=== PATIENT | female | born 1965 | race Caucasian/White ===

== ENCOUNTER 2017-01-06 00:52 | Emergency (ER) | payer MEDICAID, OTHER ==
[~2017-01-06] VITALS: Ht 165.1 cm; Wt 59.9 kg
[~2017-01-06 00:52] MED LIST: ALBUTEROL SULF8.5 GM INH; AMOXICILLIN500 MG ORAL; AZITHROMYCIN250 MG ORAL; CLARITIN10 M2 ORAL; IBUPROFEN600 MG ORAL; NKM; PROMETHAZINE-C118 M1 ORAL; RANITIDINE HCL150 MG ORAL; TYLENOL EXTRA500 MG ORAL; ZOFRAN ODT4 MG ORAL
--- NOTE | 2017-01-06 01:09 | Emergency Room Report ---
History of Present Illness General Chief Complaint: Chest Pain Source: Patient Present Illness HPI Patient presents with chest pain. Since yesterday with a cough. Cough is slightly productive. No color. She had nasal surgery for allergies and polyps. She still has a postnasal drip. She feels surgery has not helped. She's used a inhaler in the past but not recently. She is using Nasonex and a decongestant. The pain is in her chest with coughing and pleuritic. Pain is 8/10, pleuritic. No risk factors for DVT. No calf pain, hemoptysis. Allergies: Coded Allergies: IBUPROFEN (Verified Allergy, Unknown, 01/06/17) Patient History Past Medical History: see triage record Social History: Denies: smoking Social History Narrative Last Menstrual Period: 01/02/17 Now: No Reviewed Nursing Documentation: PMH: Agreed, PSxH: Agreed Nursing Documentation-PMH Past Medical History: No Stated History Review of Systems All Other Systems: negative except mentioned in HPI Physical Exam Vital Signs Date Time Temp Pulse Resp B/P (MAP) Pulse Ox O2 Delivery O2 Flow Rate FiO2 01/06/17 00:56 100.8 74 17 105/78 98 Room Air Sp02 EP Interpretation: reviewed, normal General Appearance: well appearing, no apparent distress, GCS 15 Head: normocephalic Eyes: bilateral eye normal inspection, bilateral eye PERRL ENT: moist mucus membranes, pharyngeal erythema Neck: supple Respiratory: wheezing, expiration, other - some CWT Cardiovascular #1: regular rate, rhythm, no edema Cardiovascular #2: 2+ radial (R) Gastrointestinal: normal inspection, normal bowel sounds, non tender, no mass, non-distended Musculoskeletal: back normal, gait/station normal, normal range of motion, no calf tenderness, Vaishali's Sign negative Neurologic: alert, oriented x3, grossly normal Skin: normal inspection, warm/dry Medical Decision Making Diagnostic Impression: Primary Impression: Asthmatic bronchitis Qualified Codes: J45.901 - Unspecified asthma with (acute) exacerbation Additional Impressions: Anxiety Dyspepsia ER Course Patient with cough, chest pain, and wheezing. DDx; asthma, allergy, bronchitis , pneumonia, PE. Latter less likely with history and VS. CAD less likely as no risk factors. Fever suggests infective process. EKG, CXR, labs indicated. Treatment with breathing treatments and solumedrol. After breathing treatments patient is improved with her respiratory status. She started having right upper quadrant discomfort and nausea. This caused her to have increased anxiety. This was treated with Pepcid and Ativan with relief. EKG normal. XRay without definite infiltrate. Labs with normal WBC and labs. Improved with treatment. Patient stable for outpatient observation and treatment. Labs Test 01/06/17 01:15 01/06/17 03:30 White Blood Count 5.0 K/UL (4.8-10.8) Red Blood Count 4.13 M/UL (4.20-5.40) Hemoglobin 13.3 G/DL (12.0-16.0) Hematocrit 40.0 % (37.0-47.0) Mean Corpuscular Volume 97 FL (80-99) Mean Corpuscular Hemoglobin 32.3 PG (27.0-31.0) Mean Corpuscular Hemoglobin Concent 33.3 G/DL (32.0-36.0) Red Cell Distribution Width 11.4 % (11.6-14.8) Platelet Count 156 K/UL (150-450) Mean Platelet Volume 10.3 FL (6.5-10.1) Neutrophils (%) (Auto) 69.1 % (45.0-75.0) Lymphocytes (%) (Auto) 15.3 % (20.0-45.0) Monocytes (%) (Auto) 13.1 % (1.0-10.0) Eosinophils (%) (Auto) 1.8 % (0.0-3.0) Basophils (%) (Auto) 0.8 % (0.0-2.0) Sodium Level 138 mEQ/L (135-145) Potassium Level 4.0 mEQ/L (3.4-4.9) Chloride Level 101 mEQ/L (98-107) Carbon Dioxide Level 25 mEQ/L (20-30) Anion Gap 12 (5-15) Blood Urea Nitrogen 8 mg/dL (7-23) Creatinine 0.7 mg/dL (0.5-0.9) Estimat Glomerular Filtration Rate > 60 mL/min (>60) Glucose Level 100 mg/dL (74-106) Calcium Level 9.5 mg/dL (8.6-10.2) Total Bilirubin 0.3 mg/dL (0.0-1.2) Aspartate Amino Transf (AST/SGOT) 23 U/L (5-40) Alanine Aminotransferase (ALT/SGPT) 12 U/L (3-33) Alkaline Phosphatase 50 U/L (35-104) Total Protein 7.1 g/dL (6.6-8.7) Albumin 4.1 g/dL (3.5-5.2) Globulin 3.0 g/dL Albumin/Globulin Ratio 1.3 (1.0-2.7) Urine Color Pale yellow Urine Appearance Clear Urine pH 7 (4.5-8.0) Urine Specific [place] 1.005 (1.005-1.035) Urine Protein Negative (NEGATIVE) Urine Glucose (UA) Negative (NEGATIVE) Urine Ketones Negative (NEGATIVE) Urine Occult Blood 1+ (NEGATIVE) Urine Nitrite Negative (NEGATIVE) Urine Bilirubin Negative (NEGATIVE) Urine Urobilinogen Normal MG/DL (0.0-1.0) Urine Leukocyte Esterase 1+ (NEGATIVE) Urine RBC 0-2 /HPF (0 - 2) Urine WBC 0-2 /HPF (0 - 2) Urine Squamous Epithelial Cells Few /LPF (NONE/OCC) Urine Bacteria None /HPF (NONE) EKG Diagnostic Results Rate: normal Rhythm: NSR ST Segments: no acute changes Rhythm Strip Diag. Results EP Interpretation: yes Rhythm: NSR, no PVC's, no ectopy Chest X-Ray Diagnostic Results Chest X-Ray Diagnostic Results : Chest X-Ray Ordered: Yes # of Views/Limited/Complete: 1 View Indication: Chest Pain EP Interpretation: Yes Interpretation: no consolidation, no effusion, no pneumothorax, no acute cardiopulmonary disease Impression: No acute disease Electronically Signed by: Electronically signed by Daniel Mitchell MD Last Vital Signs Date Time Temp Pulse Resp B/P (MAP) Pulse Ox O2 Delivery O2 Flow Rate FiO2 01/06/17 04:30 100.8 78 18 96/49 100 Room Air Status: improved Disposition: HOME, SELF-CARE Condition: Improved Scripts Acetaminophen (Tylenol) 325 Mg Tablet 650 MG ORAL Q6H Y for Prn Pain/Headache/Temp > 101, #20 TAB 0 Refills Prov: Daniel Mitchell M.D. 01/06/17 Famotidine (PEPCID) 20 Mg Tablet 20 MG ORAL DAILY, #20 TAB 0 Refills Prov: Daniel Mitchell M.D. 01/06/17 Lorazepam* (ATIVAN*) 0.5 Mg Tablet 0.5 MG ORAL THREE TIMES A DAY, #6 TAB try to use less than 3 times a week Prov: Daniel Mitchell M.D. 01/06/17 Albuterol Sulfate* (ALBUTEROL SULFATE MDI*) 8.5 Gm Hfa.aer.ad 2 PUFF INH Q6H, #1 EA 0 Refills Prov: Daniel Mitchell M.D. 01/06/17 Daniel Mitchell M.D. Jan 06, 2017 01:09
[2017-01-06 01:10] VITALS: BP 105/78
[2017-01-06] MEDS ORDERED: Albuterol ud Inhalation HHN ONE (01:15)
[2017-01-06] MEDS ORDERED: Morphine Sulfate 2mg/ml Inj IVP ONE (01:15)
[2017-01-06] MEDS ORDERED: Solu-MEDROL 125mg Inj IVP ONE (01:15)
[2017-01-06] MEDS ORDERED: Ipratropium 0.02% Inh Soln 2.5ml UD HHN ONE (01:15)
[2017-01-06 02:01] LABS: BASOPHILS % (AUTO) 0.8 % (0.0-2.0); EOSINOPHILS % (AUTO) 1.8 % (0.0-3.0); LYMPHOCYTES % (AUTO) 15.3 % (20.0-45.0); MEAN CORPUSCULAR HEMOGLOBIN 32.3 PG (27.0-31.0); MEAN CORPUSCULAR HGB CONC 33.3 G/DL (32.0-36.0); MEAN CORPUSCULAR VOLUME 97 FL (80-99); MEAN PLATELET VOLUME 10.3 FL (6.5-10.1); MONOCYTES % (AUTO) 13.1 % (1.0-10.0); NEUTROPHILS % (AUTO) 69.1 % (45.0-75.0); PLATELET COUNT 156 K/UL (150-450); RED BLOOD COUNT 4.13 M/UL (4.20-5.40); RED CELL DISTRIBUTION WIDTH 11.4 % (11.6-14.8)
[2017-01-06 02:20] LABS: ALANINE AMINOTRANSFERASE 12 U/L (3-33); ALBUMIN/GLOBULIN RATIO 1.3 (1.0-2.7); ANION GAP 12 (5-15); ASPARTATE AMINO TRANSFERASE 23 U/L (5-40); CALCIUM 9.5 mg/dL (8.6-10.2); CARBON DIOXIDE 25 mEQ/L (20-30); CHLORIDE 101 mEQ/L (98-107); CREATININE 0.7 mg/dL (0.5-0.9); GLOMERULAR FILTRATION RATE > 60 mL/min (>60); HEMOLYSIS 6; SODIUM 138 mEQ/L (135-145); TOTAL PROTEIN 7.1 g/dL (6.6-8.7)
[2017-01-06] MEDS ORDERED: LORazepam Inj 2mg/ml 1ml IV ONE (03:00)
[2017-01-06] MEDS ORDERED: Famotidine 20 MG/ 2ML VIAL IVP ONE (03:00)
[2017-01-06 03:15] VITALS: BP 100/51
[2017-01-06 03:42] LABS: APPEARANCE,URINE CLEAR; KETONES,URINE NEGATIVE (NEGATIVE); LEUKOCYTE ESTERASE ,URINE 1+ (NEGATIVE); NITRITE,URINE NEGATIVE (NEGATIVE); PH,URINE 7 (4.5-8.0); PROTEIN,URINE NEGATIVE (NEGATIVE); UROBILINOGEN,URINE NORMAL MG/DL (0.0-1.0)
[2017-01-06 03:49] LABS: RBC,URINE 0-2 /HPF (0 - 2); SQUAMOUS EPITHELIAL CELL,UR FEW /LPF (NONE/OCC); WBC,URINE 0-2 /HPF (0 - 2)
[2017-01-06] MEDS ORDERED: ALBUTEROL SULF8.5 GM INH (04:04)
[2017-01-06] MEDS ORDERED: ATIVAN0.5 MG ORAL (04:04)
[2017-01-06] MEDS ORDERED: TYLENOL325 MG ORAL (04:04)
[2017-01-06] MEDS ORDERED: PEPCID20 MG ORAL (04:04)
[2017-01-06 04:28] VITALS: BP 96/49
[2017-01-06 04:30] VITALS: BP 96/49
[2017-01-06] MEDS ORDERED: Mylanta II UD 30ml ORAL ONE (04:30)
--- NOTE | 2017-01-06 11:27 | Diagnostic Imaging Report ---
Indication: COUGH Technique: One view of the chest Comparison: 06/28/2015 Findings: Lungs and pleural spaces are clear. Heart size is normal . No significant interim change Impression: No acute process This agrees with the preliminary interpretation provided by the emergency room physician
--- NOTE | 2017-01-06 14:34 | Cardiology Report ---
APPROVED REPORT EKG Measurement Heart [id number] Normal sinus rhythm Normal ECG
== END 2017-01-06 04:31 | disposition home or self-care (01) ==
LOC: EMR 01:14
DX: J45.909 Unspecified asthma, uncomplicated (principal); F41.9 Anxiety disorder, unspecified; R10.13 Epigastric pain; R07.9 Chest pain, unspecified; R05 Cough; R09.82 Postnasal drip; Z88.6 Allergy status to analgesic agent
CPT/HCPCS: 36415; 71010; 80053; 81003; 85025; 93005; 94640; 94664; 96361; 96374; 96375; 99284; J2405; J2930; S0028